=== PATIENT | female | born 2000 | race Two or more races ===

== ENCOUNTER 2024-02-15 07:38 | Emergency (ER) | payer OTHER ==
[~2024-02-15] VITALS: Ht 165.1 cm; Wt 45.4 kg
[2024-02-15] MEDS ORDERED: TRAMADOL HCL 50 MG TABLET PO ONE (08:45)
[2024-02-15 09:11] LABS: HEMATOCRIT 38.2 % (36.0-45.00); HEMOGLOBIN 13.2 g/dL (12.0-15.00); MEAN CORPUSCULAR HEMOGLOBIN 31.4 pg (27.00-32.0); MEAN CORPUSCULAR HGB CONC 34.6 g/dl (32.0-36.0); PLATELET COUNT 152 K/uL (150-450); RED CELL DISTRIBUTION WIDTH 13.8 % (11.5-14.5)
[2024-02-15] MEDS ORDERED: KETO10TA2 PO (11:01)
== END 2024-02-15 11:11 | disposition home or self-care (01) ==
LOC: ER 07:39
PROVIDERS: General Practice
DX: R10.2 Pelvic and perineal pain (principal); Z88.0 Allergy status to penicillin